=== PATIENT | male | born 1950 | race Caucasian/White ===

== ENCOUNTER 2021-02-01 09:31 | Day surgery (SDC) | payer MEDICARE, OTHER ==
--- NOTE | 2021-02-01 08:31 | HP ---
DATE OF SURGERY: 02/01/2021 HISTORY OF PRESENT ILLNESS: The patient is a 70-year-old lesion on the right face, left groin nonhealing lesion. He is in need of excision and biopsy of these. PAST MEDICAL HISTORY: Hyperlipidemia, hypertension, sleep apnea. PAST SURGICAL HISTORY: Vasectomy. Fractured elbow. Colonoscopy. He had some leukocytosis in the past. MEDICATIONS: Simvastatin, amlodipine, losartan, hydrochlorothiazide, Flomax, cetirizine, ibuprofen, vitamin D. ALLERGIES: NKDA. FAMILY HISTORY: Negative in regards to this problem. SOCIAL HISTORY: No smoking. Denies alcohol abuse. REVIEW OF SYSTEMS: Fourteen systems reviewed. No chest pain or palpitations. Other systems negative or noncontributory as above and per preadmission questionnaire. PHYSICAL EXAMINATION: GENERAL: No acute distress. HEENT: Sclerae nonicteric. Right face lesion of indeterminate behavior. NECK: No JVD. CHEST: Equal excursion, nonlabored breathing. CVS: Regular rate and rhythm. ABDOMEN: Soft. No peritoneal signs. Left groin nonhealing lesion. EXTREMITIES: No significant edema. NEURO: Alert, oriented, moving extremities symmetrically. PSYCH: Appropriate mood and affect. IMPRESSION: Left groin nonhealing lesion in need of excision. Right face lesion of indeterminate behavior and enlarging. He is in need of excision of both of these. On the face he will possibly need skin graft. Otherwise risks of aches, pains, burning, numbness, scar formation as well as motor nerve irritation, scar formation, chewing dysfunction, eyelid dysfunction or drooped lip. General risk of anesthesia, deep vein thrombosis, pulmonary embolism, pneumonia but not limited to, consent obtained. Will proceed with excision and biopsy right face lesion of indeterminate behavior, possible skin graft as well as excision and biopsy of nonhealing lesion left groin as an outpatient.
[~2021-02-01 09:31] MED LIST: Lactated Ringers 1,000 ML IV ONE; Sensorcaine 0.25% 10 ML ONE
[2021-02-01] MEDS ORDERED: Triple Antibiotic Ointment ONE (09:34)
[2021-02-01] MEDS ORDERED: Lactated Ringers 1,000 ML IV SCH (10:30)
[2021-02-01] MEDS ORDERED: SUBLIMAZE 100 MCG/2 ML ONE (11:44)
[2021-02-01] MEDS ORDERED: TORAdol 30 mg Injection ONE ×2 (11:44→13:08)
[2021-02-01] MEDS ORDERED: Zofran 4 MG/2 ML VIAL ONE (11:44)
[2021-02-01] MEDS ORDERED: BRIDION 200MG/2ML IV ONE (11:44)
[2021-02-01] MEDS ORDERED: Decadron 4 MG INJ ONE (11:44)
[2021-02-01] MEDS ORDERED: DIPRIVAN 200 MG/20 ML IV ONE (11:44)
[2021-02-01] MEDS ORDERED: Zemuron 100 MG/10 ML ONE (11:44)
[2021-02-01] MEDS ORDERED: Xylocaine-Mpf 2% 5 Ml Vial ONE (11:44)
[2021-02-01] MEDS ORDERED: KEFZOL 1 GM ONE (12:45)
[2021-02-01 13:50] VITALS: O2SAT 95
[2021-02-01 14:17] VITALS: BP 169/94; PULSE 86
--- NOTE | 2021-02-02 08:09 | OP ---
SURGERY DATE/TIME: 02/01/2021 1201 PREOPERATIVE DIAGNOSES: 1) Nonhealing, enlarging lesion of indeterminate behavior right face near eye. 2) Enlarging, symptomatic lesion of indeterminate behavior left groin. POSTOPERATIVE DIAGNOSES: 1) Nonhealing, enlarging lesion of indeterminate behavior right face near eye. 2) Enlarging, symptomatic lesion of indeterminate behavior left groin. PROCEDURE: 1) Excisional biopsy of right face lesion of indeterminate behavior with local advancement flap closure (6 mm with margins). 2) Excisional biopsy of left groin lesion of indeterminate behavior approximately 1.1 cm with intermediate closure. SURGEON: Dr. Axel Bryant. BAND SAW FILER: Jackie Gar, Medical Student III. ANESTHESIA: General. ESTIMATED BLOOD LOSS: Minimal. INDICATIONS: As noted above. Risks and benefits explained in detail and not limited to and consent obtained. DESCRIPTION OF PROCEDURE AND FINDINGS: The patient is taken to the operating room. General anesthesia induced. After prepping and draping in usual sterile fashion and after official time out and no disagreement with planned procedure, started first with marking out to normal appearing skin around this exophytic, enlarging lesion on the face between the eyes and the nose medial orbit area. Dissection carried down to normal appearing underneath tissue. Local advancement flaps were advanced back to the midline. Unfortunately there was no 6-0 Prolene available so used 5-0 Prolene in an interrupted fashion bringing the flaps back to midline. The specimen measured about 6 mm with margins and passed off for pathology. Good hemostasis noted. Attention was then turned to the groin area. Marking out to normal appearing skin around this area dissection carried deep to underlying subcutaneous tissue and passed off. It measured about 11 mm in size. Hemostasis controlled with some pinpoint cautery. Good hemostasis noted. Closed in interrupted fashion with interrupted 5-0 Vicryl closing the subcu and deep dermis in interrupted fashion, some Dermabond was placed over the top followed by a pressure dressing. The patient tolerated the procedure well. There were no immediate complications. There was no family available to discuss findings with immediately after the procedure when I went out there. If they return I will answer questions. Otherwise I will see him back in the office next week.
== END 2021-02-01 14:15 | disposition home or self-care (01) ==
LOC: SDC 09:31
PROVIDERS: ATTEND Surgery
DX: D04.5 Carcinoma in situ of skin of trunk (principal); L82.1 Other seborrheic keratosis
CPT/HCPCS: 88305; 88341; 88342; J0690; J1100; J1885; J2405; J2704; J3010; A9270-GY

== ENCOUNTER 2021-03-15 12:51 | Day surgery (SDC) | payer MEDICARE, OTHER ==
--- NOTE | 2021-03-15 10:17 | HP ---
DATE OF SURGERY: 03/15/2021 HISTORY OF PRESENT ILLNESS: The patient is a 70-year-old who had some lesions excised in the past in the left groin area. 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 PAST MEDICAL HISTORY: Hypertension, hyperlipidemia. PAST SURGICAL HISTORY: Excision of right face lesion and left groin lesion in the past. Vasectomy. Fractured elbow. Colonoscopy in the past. MEDICATIONS: Simvastatin, amlodipine, losartan-hydrochlorothiazide, Flomax, cetirizine, ibuprofen, vitamin D. ALLERGIES: NKDA. FAMILY HISTORY: Negative in regards to this problem. SOCIAL HISTORY: Denied smoking or alcohol abuse. REVIEW OF SYSTEMS: Fourteen systems reviewed. No chest pain or palpitations. Other systems negative or noncontributory as above and per preadmission questionnaire. PHYSICAL EXAMINATION: GENERAL: No acute distress. HEENT: Sclerae nonicteric. NECK: No JVD. CHEST: Equal excursion, nonlabored breathing. CVS: Regular rate and rhythm. ABDOMEN: Soft. No peritoneal signs. Left groin site excision site looks okay. EXTREMITIES: No cyanosis. NEURO: Alert, oriented, moving extremities symmetrically. PSYCH: Appropriate mood and affect. IMPRESSION: Squamous cell carcinoma in situ. He is in need of wide excision of this site. General risk of bleeding or infection, risk of wound dehiscence possibly requiring packing, risk of involved margins possibly requiring wider excision or other treatment, general risk of anesthesia, deep vein thrombosis, pulmonary embolism, pneumonia but not limited to, consent obtained. Will proceed with wide excision left groin squamous cell carcinoma in situ biopsy site as an outpatient.
[~2021-03-15 12:51] MED LIST changes: -Lactated Ringers 1,000 ML IV ONE
[2021-03-15] MEDS ORDERED: Lactated Ringers 1,000 ML IV ONE (13:11)
[2021-03-15] MEDS ORDERED: Lactated Ringers 1,000 ML IV SCH (13:30)
[2021-03-15] MEDS ORDERED: Versed 2 MG/2 ML Injection ONE (13:49)
[2021-03-15] MEDS ORDERED: Xylocaine-Mpf 2% 5 Ml Vial ONE (13:49)
[2021-03-15] MEDS ORDERED: SUBLIMAZE 100 MCG/2 ML ONE (13:49)
[2021-03-15] MEDS ORDERED: Decadron 4 MG INJ ONE (13:49)
[2021-03-15] MEDS ORDERED: DIPRIVAN 200 MG/20 ML IV ONE (13:49)
[2021-03-15] MEDS ORDERED: Zofran 4 MG/2 ML VIAL ONE (13:49)
[2021-03-15] MEDS ORDERED: TORAdol 30 mg Injection ONE (14:53)
[2021-03-15] MEDS ORDERED: Ephedrine Sulfate 50 MG/ML ONE (14:57)
[2021-03-15] MEDS ORDERED: KEFZOL 1 GM ONE (15:39)
[2021-03-15 16:44] VITALS: BP 103/48; PULSE 77; O2SAT 97
--- NOTE | 2021-03-16 09:22 | OP ---
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 PROCEDURE: Wide excision squamous cell carcinoma in situ biopsy site left groin (approximately 3 cm with margins). SURGEON: Dr. Axel Bryant. ANESTHESIA: General. ESTIMATED BLOOD LOSS: Minimal. INDICATIONS: As noted above. Risks and benefits explained in detail and not limited to and consent obtained. Site confirmed in preoperative holding area. DESCRIPTION OF PROCEDURE AND FINDINGS: Taken to the operating room. Under bright lights can definitely tell where the biopsy site was much better. In dorsal lithotomy position after general anesthesia was induced, prepped and draped in usual sterile fashion. After official time out and no disagreement with planned procedure, marking out to normal appearing skin on either side of this went from 0.5 cm to 1 cm on either side. Dissection carried down to normal subcutaneous tissue beneath. We had about 1 cm on each side of this biopsy site. As the previous biopsy site was longer and wide, it did result in 3 cm margin. Specimen was about 4 to 4.5 cm long spindled shaped excision pattern. Dissection carried down to normal subcutaneous tissue and passed off. Good hemostasis noted. The wound is closed with interrupted 3-0 Vicryl intermediate fashion in the deep superficial subcu. The skin closed with 4-0 Vicryl, Dermabond placed on the skin in a couple areas. Sterile dressing applied. The patient tolerated the procedure well. There were no immediate complications. There was no family to discuss the findings with at this time. I will see him back in the office next week to go over the biopsy results.
== END 2021-03-15 16:50 | disposition home or self-care (01) ==
LOC: SDC 12:51
PROVIDERS: ATTEND Surgery
DX: D04.5 Carcinoma in situ of skin of trunk (principal); Z79.899 Other long term (current) drug therapy
CPT/HCPCS: J0690; J1100; J1885; J2250; J2405; J2704; J3010

== ENCOUNTER 2022-06-13 11:02 | Day surgery (SDC) | payer MEDICARE, OTHER ==
--- NOTE | 2022-05-31 14:50 | HP ---
DATE OF SURGERY: 06/13/2022 HISTORY OF PRESENT ILLNESS: The patient is a 71-year-old gentleman with no bloody stools. No change bowel movement. No new abdominal pain. Family negative for colon cancer. He is in need of screening colonoscopy. He also had some reflux and is in need of upper endoscopy as well. He had some chest aches that have improved. PAST MEDICAL HISTORY: Obesity. Sleep apnea. Psychosis. Hyperlipidemia. Iron deficiency in the past. PAST SURGICAL HISTORY: No recent endoscopy. Last colonoscopy more than ten years ago. MEDICATIONS: Ergocalciferol, losartan, tamsulosin. ALLERGIES: NKDA. FAMILY HISTORY: Negative for colon cancer. SOCIAL HISTORY: No smoking. REVIEW OF SYSTEMS: Fourteen systems reviewed. No chest pain or palpitations. Other systems negative or noncontributory as above and per preadmission questionnaire. PHYSICAL EXAMINATION: Weight 243, height 5'6". BMI 39. GENERAL: No acute distress. HEENT: Sclerae nonicteric. NECK: No JVD. CHEST: Equal excursion, nonlabored breathing. CVS: Regular rate and rhythm. ABDOMEN: Soft. No peritoneal signs. EXTREMITIES: No significant edema. NEURO: Alert, oriented, moving extremities symmetrically. RECTAL: Deferred timed to endoscopy exam. PSYCH: Appropriate mood and affect. SKIN: Dry. IMPRESSION: Increased reflux, needs upper endoscopy to evaluate for gastritis, esophagitis or peptic ulcer disease. He also is in need of screening colonoscopy as he had polyps in the past. Last colonoscopy more than ten years ago. He was shown the risk sheet, explained the procedure in detail including but not limited to risk of bleeding or infection, risk of bowel injury or perforation, risk of missed or nondiagnosis or incomplete exam possibly requiring barium enema, barium swallow, other studies or procedures, general risk of anesthesia or sedation, risk of bowel prep but not limited to, possibility of inability to diagnose the etiology of his symptoms possibly requiring other studies or referrals. He understands and agrees to the planned procedure, will proceed with EGD and colonoscopy as an outpatient under MAC anesthesia.
--- NOTE | 2022-06-13 09:12 | HP ---
DATE OF SURGERY: 06/13/2022 HISTORY OF PRESENT ILLNESS: The patient is a 71-year-old gentleman with no bloody stools. No change in bowel movements. No new abdominal pain. Family history negative for colon cancer. He is in need of screening colonoscopy. He recently had some reflux. He has had some chest aches that has actually improved a little bit. He is in need of upper endoscopy to evaluate for esophagitis, peptic ulcer disease, gastritis or other etiology. PAST MEDICAL HISTORY: Hypertension. PAST SURGICAL HISTORY: Denies abdominal surgery. MEDICATIONS: None on a regular basis. ALLERGIES: NKDA. FAMILY HISTORY: Negative for colon cancer. SOCIAL HISTORY: No smoking. REVIEW OF SYSTEMS: Fourteen systems reviewed. No chest pain or palpitations. Other systems negative or noncontributory as above and per preadmission questionnaire. PHYSICAL EXAMINATION: GENERAL: No acute distress. HEENT: Sclerae nonicteric. NECK: No JVD. CHEST: Equal excursion, nonlabored breathing. CVS: Regular rate and rhythm. ABDOMEN: Soft. No peritoneal signs. EXTREMITIES: No significant edema. NEURO: Alert, oriented, moving extremities symmetrically. RECTAL: Deferred timed to endoscopy exam. PSYCH: Appropriate mood and affect. SKIN: Dry. IMPRESSION: Need for screening colonoscopy. He had some polyps, last colonoscopy greater than ten year ago. He also has had increased reflux in need of upper endoscopy to evaluate for gastritis, peptic ulcer disease, esophagitis or other etiology. He was shown the risk sheet explained the procedure in detail but not limited to bleeding or infection, risk of bowel injury or perforation, risk of missed or nondiagnosis or incomplete exam possibly requiring barium enema, barium swallow, other studies or procedures, general risk of anesthesia or sedation, risk of bowel prep but not limited to, consent obtained. Will proceed with EGD and colonoscopy as an outpatient.
[2022-06-13] MEDS ORDERED: Lactated Ringers 1,000 ML IV SCH (11:30)
[2022-06-13] MEDS ORDERED: Lactated Ringers 1,000 ML IV ONE (11:36)
[2022-06-13] MEDS ORDERED: Versed 2 MG/2 ML Injection ONE (12:31)
[2022-06-13] MEDS ORDERED: DIPRIVAN 200 MG/20 ML IV ONE ×2 (12:31→12:46)
[2022-06-13 13:55] VITALS: BP 134/97; PULSE 93; O2SAT 99
--- NOTE | 2022-06-13 14:27 | OP ---
SURGERY DATE/TIME: 06/13/2022 1232 PREOPERATIVE DIAGNOSES: 1) History of increased reflux, need for upper endoscopy. 2) History of polyps in the past, need follow up screening colonoscopy. POSTOPERATIVE DIAGNOSES: 1) Mild gastritis. 2) Mild inflammation proximal stomach and gastroesophageal junction. 3) Mild erythema distal esophagus. 4) Colon polyp. 5) Diverticulosis. 6) Fair bowel prep. 7) ASA Class III. 8) Withdrawal time of colonoscopy approximately ten minutes. PROCEDURES: 1) EGD with cold biopsy of antrum for Helicobacter pylori. 2) Cold biopsy small, little raised inflammation proximal stomach side of the gastroesophageal junction. 3) Cold biopsy of distal esophagus to evaluate for mild esophageal erythema. 4) Colonoscopy to cecum. 5) Hot biopsy polypectomy transverse colon polyp removed in piecemeal. 6) Hot biopsy polypectomy descending colon polyp. 7) Hot biopsy polypectomy rectal polyp resected x3. 8) Cold biopsy of mucosal questionable submucosal lipoma ascending colon. SURGEON: Dr. Axel Bryant. ANESTHESIA: MAC. ESTIMATED BLOOD LOSS: Minimal. INDICATIONS: As noted above. Risks and benefits explained in detail and not limited to and consent obtained. DESCRIPTION OF PROCEDURE AND FINDINGS: The patient is taken to the operating room. MAC anesthesia introduced. After official time out and no disagreement with planned procedure, bite block is positioned. Video gastroscope easily passed down the esophagus to the patent pylorus to the third and fourth portion of the duodenum. Duodenum grossly unremarkable. The scope is carefully withdrawn. Back in the stomach she did have some mild gastric erythema and some mild early gastritis or chronic gastritis. No evidence of any ulcers. Cold biopsy taken to evaluate for Helicobacter pylori. Good hemostasis noted. On retroflex there is just a little, small inflammation near the gastroesophageal junction on the gastric side this was biopsied. It did not appear to be a mass but just more of an inflammation raised area. Cold biopsy taken. Good hemostasis noted. Otherwise the gastroesophageal junction there was a little bit of erythema in the esophagus but no erosions, no gross Beasley's. Cold biopsy taken to evaluate for early esophagitis versus normal variation. The remainder of the esophagus no signs of any obvious masses, no signs of any erosions or any mucosal lesions. The scope is withdrawn. Attention is then turned to colonoscopy. Digital rectal exam did not reveal any rectal masses. Video colonoscope inserted and passed up the tortuous sigmoid, descending, transverse, ascending colon around to the cecum. Appendiceal orifice and valve photo documented. He has a little bit tortuous colon but prep overall was fair with a little bit of liquidy, semisolid stool throughout the colon that was suctioned and irrigated as clear as possible. The scope is slowly and carefully withdrawn. In the ascending colon, there appeared to be question of submucosal lipoma. Cold biopsy taken. Normal mucosal overlying. Good hemostasis noted. Scope pulled back to transverse colon and descending colon and some small polyps removed with hot biopsy polypectomy one of which removed in piecemeal fashion. Otherwise, he had some diverticulosis in the left colon. Scope pulled back to the rectum. A few small, early polyps or hyperplastic lesions removed with hot biopsy polypectomy. Good hemostasis noted. The patient tolerated the procedure well. There were no immediate complications. Findings discussed with his family or friend over the phone. I will see him back in the office next week.
== END 2022-06-13 14:03 | disposition home or self-care (01) ==
LOC: SDC 11:02
PROVIDERS: ATTEND Surgery
DX: Z09 Encounter for follow-up examination after completed treatment for conditions other than malignant neoplasm (principal); Z86.010 Personal history of colon polyps; K21.9 Gastro-esophageal reflux disease without esophagitis; K29.70 Gastritis, unspecified, without bleeding; K22.89 Other specified disease of esophagus; K57.30 Diverticulosis of large intestine without perforation or abscess without bleeding; D12.4 Benign neoplasm of descending colon
CPT/HCPCS: J2250; J2704

== ENCOUNTER 2022-12-07 14:25 | Day surgery (SDC) | payer MEDICARE, OTHER ==
[2022-12-07] MEDS ORDERED: LIDOCAINE HCL 1% 50 MG/5 ML VL PF IJ ONE (14:26)
[2022-12-07] MEDS ORDERED: Sodium Chloride 0.9(Preservative Free) 10 ML IJ ONE (14:26)
[2022-12-07] MEDS ORDERED: Depo-Medrol 40 MG/ML IM ONE (14:26)
[2022-12-07] MEDS ORDERED: DIPRIVAN 200 MG/20 ML IV ONE (16:34)
[2022-12-07] MEDS ORDERED: Lactated Ringers 1,000 ML IV ONE (18:16)
--- NOTE | 2022-12-07 22:47 | XRAY ---
Indication: Lumbar YUNIER. Intraoperative fluoroscopy provided for 18 seconds. 3 digital spot images submitted for interpretation demonstrates posterior needle tip projecting just posterior to lumbosacral junction interspace. Small amount of contrast injected for needle tip placement. Correlate with intraoperative findings/report.
--- NOTE | 2022-12-08 09:07 | XRAY ---
18 seconds of fluoroscopy was used in surgery for a lumbar YUNIER.
== END 2022-12-07 17:07 | disposition home or self-care (01) ==
LOC: SDC-PAIN 14:25
PROVIDERS: ATTEND Psychiatry & Neurology Pain Medicine
DX: M54.16 Radiculopathy, lumbar region (principal); Z79.899 Other long term (current) drug therapy
CPT/HCPCS: 62323; 72100; 77003; J1030; J2001; J2704; Q9966

== ENCOUNTER 2023-01-16 10:09 | Emergency (ER) | payer MEDICARE, OTHER ==
[2023-01-16 10:34] VITALS: RESP 18; TEMP 97; O2SAT 98
--- NOTE | 2023-01-16 10:39 | ERPHSYRPT ---
- History of Present Illness Time Seen by Provider: 01/16/23 10:26 Source: patient, other (girlfriend) Exam Limitations: no limitations Patient Subjective Stated Complaint: pt here for left lower leg pain for 2 weeks now. Triage Nursing Assessment: pt walked in, resp easy, skin w/d/p. left lower leg and foot pale, cold to touch, no swelling or redness. co feeling numb Physician History: Pt states he has had pain in his lower back to his left toes with numbness and a cold feeling in his left foot for the past 2 weeks. Today he noticed his left foot was pale. Pt denies fever, chest pain, vomiting; admits to shortness of air for the past 2 weeks with exertion. Allergies/Adverse Reactions: No Known Drug Allergies Allergy (Verified 01/16/23 10:21) Home Medications: Amlodipine Besylate 5 mg [Norvasc 5 mg] 5 mg PO DAILY 01/22/21 [History] Cetirizine HCl 10 mg PO DAILY 01/22/21 [History] Losartan Potassium [Cozaar] 100 mg PO DAILY 01/22/21 [History] PANTOPRAZOLE 40 mg Tablet [Protonix 40MG Tablet] 40 mg PO QAM 06/03/22 [History] Pravastatin Sodium 20 mg PO DAILY 06/03/22 [History] hydroCHLOROthiazide [Hydrochlorothiazide] 20 mg PO DAILY 06/03/22 [History] Hx Influenza Vaccination/Date Given: No Hx Pneumococcal Vaccination/Date Given: Yes Immunizations Up to Date: Yes Travel Risk - International Travel Have you traveled outside of the country in past 3 weeks: No - Coronavirus Screening Are you exhibiting any of the following symptoms?: No Close contact with a COVID-19 positive Pt in past 14-21 Days: No - Vaccine Status Have you recieved a Covid-19 vaccination: Yes Ski [employer]: Moderna - Vaccination Dates Date of 2cond Vaccination (if applicable): 2020 - Review of Systems Constitutional: No Fever, No Chills Ears, Nose, & Throat: No Ear Pain, No Throat Pain Respiratory: Dyspnea on Exertion (BENAVIDEZ) Cardiac: No Chest Pain Abdominal/Gastrointestinal: No Abdominal Pain, No Nausea, No Vomiting Musculoskeletal: Other (left foot is pale today) - Past Medical History Pertinent Past Medical History: Yes Neurological History: No Pertinent History ENT History: No Pertinent History Cardiac History: High Cholesterol, Hypertension Respiratory History: No Pertinent History Endocrine Medical History: No Pertinent History Musculoskeletal History: No Pertinent History GI Medical History: No Pertinent History History: No Pertinent History Psycho-Social History: No Pertinent History Male Reproductive Disorders: No Pertinent History Other Medical History: has too much blood has to have it drawn off every so often. had it done on 01/20/2021. - Past Surgical History Past Surgical History: Yes Neuro Surgical History: No Pertinent History Cardiac: No Pertinent History Respiratory: No Pertinent History Gastrointestinal: No Pertinent History Genitourinary: No Pertinent History Musculoskeletal: Other Male Surgical History: No Pertinent History Other Surgical History: arm put back together after he broke it. skin cancer removed a few weeks ago - Social History Smoking Status: Never smoker Exposure to second hand smoke: No Drug Use: none Patient Lives Alone: No - Nursing Vital Signs Nursing Vital Signs: Initial Vital Signs Temperature 97.0 F 01/16/23 10:34 Pulse Rate 99 H 01/16/23 10:34 Respiratory Rate 18 01/16/23 10:34 Blood Pressure 118/100 01/16/23 10:34 O2 Sat by Pulse Oximetry 98 01/16/23 10:34 Pain Scale Pain Intensity 7 - Physical Exam General Appearance: alert Eyes, Ears, Nose, Throat Exam: moist mucous membranes Neck Exam: normal inspection Cardiovascular/Respiratory Exam: normal breath sounds, heart sounds normal Gastrointestinal/Abdominal Exam: soft (B.S. normal) Hips Exam: bilateral: normal range of motion Legs Exam: bilateral leg: normal range of motion Knees Exam: left knee: other (No left popliteal pulse), bilateral knee: normal range of motion Ankle Exam: left ankle: other, bilateral ankle: normal range of motion Foot Exam: right foot: other (left foot pale, cold & without pulses; good left femoral pulse.), bilateral foot: normal range of motion Neuro/Tendon Exam: sensory deficit (decreased sensation of left foot) Mental Status Exam: alert, oriented x 3, cooperative Skin Exam: pale (left foot) SpO2 Interpretation: normal SpO2: 98 O2 Delivery: Room Air - Course Nursing assessment & vital signs reviewed: Yes - CT Exams Left Lower Extremity CT Interpretation: Discussed w/radiologist (Occlusion mid to distal superficial femoral, popliteal, tibial peroneal trunk and posterior tibial arteries. Faint reconstitution peroneal and anterior tibial arteries but no runoff into the left foot.) Ordered Tests: Active Orders 24 hr Category Date Time Status IV Insertion-2nd Peripheral STAT Care 01/16/23 11:48 Active CTA LOWER EXTREMITY W CONTRAST [CT] Stat Exams 01/16/23 10:50 Completed CBC W DIFF Stat Lab 01/16/23 10:31 Completed CMP Stat Lab 01/16/23 10:31 Completed PROTIME WITH INR Stat Lab 01/16/23 10:31 Completed Medication Summary Discontinued Medications Generic Name Dose Route Start Last Admin Trade Name Freq PRN Reason Stop Dose Admin Sodium Chloride 1,000 mls @ 999 mls/hr 01/16/23 10:48 01/16/23 11:03 Sodium Chloride 0.9% 1000 Ml IV 01/16/23 11:48 999 mls/hr .Q1H1M STA Administration Sodium Chloride Confirm 01/16/23 11:00 Sodium Chloride 0.9% 1000 Ml Administered 01/16/23 11:01 Dose 1,000 mls @ ud .ROUTE .STK-MED ONE Morphine Sulfate 2 mg 01/16/23 10:51 01/16/23 11:04 Morphine Sulfate 2 Mg/Ml Inj IV 01/16/23 10:52 2 mg STAT ONE Administration Morphine Sulfate Confirm 01/16/23 11:00 Morphine Sulfate 2 Mg/Ml Inj Administered 01/16/23 11:01 Dose 2 mg .ROUTE .STK-MED ONE Lab/Rad Data: Laboratory Result Diagrams 01/16/23 10:31 01/16/23 10:31 Laboratory Results 01/16/23 01/16/23 01/16/23 Range/Units 10:31 10:31 10:31 WBC 15.3 H (4.0-10.5) x10^3/uL RBC 6.48 H (4.1-5.6) x10^6/uL Hgb 13.3 (12.5-18.0) g/dL Hct 45.7 (42-50) % MCV 70.5 L (78-100) fL MCH 20.5 L (26-32) pg MCHC 29.1 L (32-36) g/dL RDW 19.9 H (11.5-14.0) % Plt Count 463 H (150-450) x10^3/uL MPV 7.7 (7.5-11.0) fL Gran % 71.1 H (36.0-66.0) % Immature Gran % (Auto) 1.3 H (0.00-0.4) % Nucleat RBC Rel Count 0.0 (0.00-0.1) % Eos # (Auto) 0.15 (0-0.5) x10^3/uL Immature Gran # (Auto) 0.20 H (0.00-0.03) x10^3u/L Absolute Lymphs (auto) 2.59 (1.0-4.6) x10^3/uL Absolute Monos (auto) 1.36 H (0.0-1.3) x10^3/uL Absolute Nucleated RBC 0.00 (0.00-0.01) x10^3u/L Lymphocytes % 17.0 L (24.0-44.0) % Monocytes % 8.9 (0.0-12.0) % Eosinophils % 1.0 (0.00-5.0) % Basophils % 0.7 (0.0-0.4) % Absolute Granulocytes 10.85 H (1.4-6.9) x10^3/uL Basophils # 0.10 (0-0.4) x10^3/uL PT 10.1 (9.4-12.5) SECONDS INR 0.92 (0.8-3.0) Sodium 143 (137-145) mmol/L Potassium 3.8 (3.5-5.1) mmol/L Chloride 108 H (98-107) mmol/L Carbon Dioxide 22 (22-30) mmol/L Anion Gap 16.3 H (5-15) MEQ/L BUN 22 H (9-20) mg/dL Creatinine 0.86 (0.66-1.25) mg/dL Estimated GFR > 60.0 ML/MIN Glucose 99 (74-106) mg/dL Calcium 9.1 (8.4-10.2) mg/dL Total Bilirubin 0.40 (0.2-1.3) mg/dL AST 29 (17-59) U/L ALT 37 (0-50) U/L Alkaline Phosphatase 110 (38-126) U/L Serum Total Protein 7.9 (6.3-8.2) g/dL Albumin 4.3 (3.5-5.0) g/dL - Progress Progress: unchanged Discussed with Dr.: Other (Spoke with Dr. Rema Pressley([id number]) who requested a CTA of the left lower extremity be done at [facility] prior to transfer to [facility]. Spoke with Dr. 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
[2023-01-16 10:47] VITALS: PULSE 102
[2023-01-16] MEDS ORDERED: Sodium Chloride 0.9% 1000 ML 1,000 ML IV STA (10:48)
[2023-01-16] MEDS ORDERED: MORPHINE SULFATE 2 MG INJ IV ONE (10:51)
[2023-01-16 10:54] LABS: Absolute Neutrophil Ct (ANC) 10.85 x10^3/uL (1.4-6.9); BASOPHIL % 0.7 % (0.0-0.4); Eosinophil (Absolute #) 0.15 x10^3/uL (0-0.5); Hematocrit 45.7 % (42-50); Hemoglobin 13.3 g/dL (12.5-18.0); IMMATURE GRAN % 1.3 % (0.00-0.4); Lymphocyte (Absolute #) 2.59 x10^3/uL (1.0-4.6); Mean Cell Volume 70.5 fL (78-100); Mean Corpuscular Hemoglobin 20.5 pg (26-32); Mean Corpuscular Hgb Concent. 29.1 g/dL (32-36); Mean Platelet Volume 7.7 fL (7.5-11.0); Monocyte (Absolute #) 1.36 x10^3/uL (0.0-1.3); Monocytes % 8.9 % (0.0-12.0); Neutrophil % 71.1 % (36.0-66.0); Platelet Count 463 x10^3/uL (150-450); Red Blood Count 6.48 x10^6/uL (4.1-5.6); Red Cell Distribution Width 19.9 % (11.5-14.0); White Blood Count 15.3 x10^3/uL (4.0-10.5)
[2023-01-16] MEDS ORDERED: MORPHINE SULFATE 2 MG INJ ONE (11:00)
[2023-01-16] MEDS ORDERED: Sodium Chloride 0.9% 1000 ML 1,000 ML ONE (11:00)
[2023-01-16 11:07] LABS: ALBUMIN 4.3 g/dL (3.5-5.0); ALKALINE PHOSPHATASE 110 U/L (38-126); ANION GAP 16.3 MEQ/L (5-15); BLOOD UREA NITROGEN 22 mg/dL (9-20); CHLORIDE 108 mmol/L (98-107); Calcium 9.1 mg/dL (8.4-10.2); Carbon Dioxide 22 mmol/L (22-30); Creatinine 1 0.86 mg/dL (0.66-1.25); EST GLOMERULAR FILTRATION RATE > 60.0 ML/MIN; Glucose 99 mg/dL (74-106); INR 0.92 (0.8-3.0); PROTIME 10.1 SECONDS (9.4-12.5); Potassium 3.8 mmol/L (3.5-5.1); SGOT/AST 29 U/L (17-59); SGPT/ALT 37 U/L (0-50); SODIUM 143 mmol/L (137-145); Total Protein 7.9 g/dL (6.3-8.2)
[2023-01-16 11:14] VITALS: BP 129/98
--- NOTE | 2023-01-16 12:00 | XRAY ---
Indication: Pain. Pale. No pulse. Limited CTA left lower extremity performed using 125 cc Isovue 370 contrast. 2-D sagittal and coronal reformatted images obtained. Additional 3-D reformatted images obtained using a separate workstation. Comparison: None Visualized mid to distal aorta is minimally arteriosclerotic with widely patent branching left and right main renal arteries. Distal aorta demonstrates small focus of saccular aneurysm up to 1.5 cm diameter. Visualized iliac vessels demonstrates minimal arteriosclerotic calcifications in both common iliac arteries without critical stenosis/obstruction. Remaining visualized left external iliac artery is widely patent. Minimal arteriosclerotic disease in the distal common femoral artery. Deep femoral artery and mid to proximal superficial femoral artery demonstrates normal CTA appearance. There is occlusion of the remaining mid to distal superficial femoral artery, popliteal artery, tibial peroneal trunk, and posterior tibial artery. Faint reconstitution of peroneal and anterior tibial arteries. No obvious trifurcation vessels crossing the ankle joint to supply the left foot. Visualized noncontrasted soft tissues demonstrates scattered colonic diverticulosis. No acute fracture, dislocation, or suspicious bony lesions. Impression: 1. 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 2. Minimal arteriosclerotic disease involving pelvic vessels without critical stenosis/obstruction. 3. Occlusion mid to distal superficial femoral, popliteal, tibial peroneal trunk, and posterior tibial arteries. Faint reconstitution peroneal and anterior tibial arteries but no runoff into the left foot. Comment: Telephone report was given Dr. Ulrich in the ER at 1155 hrs. on January 16, 2023.
[2023-01-16] MEDS ORDERED: Heparin 25,000 units/D5W: USE ORDER SET PROTO 25,000 UNITS/250 ML BAG IV ONE (12:08)
[2023-01-16] MEDS ORDERED: HEPARIN 5000 UNITS/0.5 ML (HIGH RISK MED) ONE (12:08)
[2023-01-16] MEDS ORDERED: HEPARIN 5000 UNITS/0.5 ML (HIGH RISK MED) IV ONE (12:11)
[2023-01-16] MEDS ORDERED: Heparin 25,000 units/D5W: USE ORDER SET PROTO 25,000 UNITS/250 ML BAG IV SCH (12:30)
== END 2023-01-16 12:36 | disposition short-term general hospital (02) ==
LOC: ED 10:09
DX: I70.202 Unspecified atherosclerosis of native arteries of extremities, left leg (principal); M54.50 Low back pain, unspecified; R20.2 Paresthesia of skin; R06.02 Shortness of breath; E78.5 Hyperlipidemia, unspecified; I10 Essential (primary) hypertension; Z79.899 Other long term (current) drug therapy
CPT/HCPCS: 36000; 36415; 73706; 80053; 85025; 85610; 85730; 93041; 96374; 96375; 99285; 99291; J1644; J2270

== ENCOUNTER 2023-06-12 08:09 | Day surgery (SDC) | payer MEDICARE, OTHER ==
[2023-06-12] MEDS: Lactated Ringers 1,000 ML IV SCH (08:40)
--- NOTE | 2023-06-12 09:09 | HP ---
DATE OF SURGERY: 06/12/2023 HISTORY OF PRESENT ILLNESS: The patient is a 72-year-old on iron pills. No bright bloody stools. He had a blood clot and leg vessel cleaned out a few months ago. Family history negative for colon cancer. It is felt he is in need of EGD and colonoscopy. PAST MEDICAL HISTORY: As mentioned above. Hypertension, erythrocytosis and anemia. PAST SURGICAL HISTORY: Elbow surgery. Colonoscopy. Vasectomy. Leg clot cleaned out in the past. MEDICATIONS: Per admission assessment. His medications include metoprolol, Xarelto, Pravastatin for hyperlipidemia, amlodipine for hypertension, hydrochlorothiazide. ALLERGIES: NKDA. FAMILY HISTORY: Initially he told he did not have family history of colon cancer, whether his mother does or not is unclear. SOCIAL HISTORY: No smoking or alcohol abuse. REVIEW OF SYSTEMS: Twelve systems reviewed. No chest pain or palpitations. Other systems negative or noncontributory as above and per preadmission questionnaire. PHYSICAL EXAMINATION: Height 5 feet 6 inches. BMI 39.32. GENERAL: No acute distress. HEENT: Sclerae nonicteric. EOMI. Oral mucous membranes moist. NECK: No JVD. CHEST: Equal excursion, nonlabored breathing. CVS: Regular rate and rhythm. ABDOMEN: Soft. No peritoneal signs. EXTREMITIES: No significant edema. NEURO: Alert, oriented, moving extremities symmetrically. RECTAL: Deferred timed to endoscopy exam. PSYCH: Appropriate mood and affect. SKIN: Dry. IMPRESSION: Anemia. I recommend EGD and colonoscopy for further evaluation. Risks explained in detail including but not limited to bleeding or infection, risk of bowel injury or perforation, risk of missed or nondiagnosis or incomplete exam possibly requiring other procedures or referrals. Risk of anesthesia or sedation, risk of bowel prep. Risk of perforation possibly requiring open procedure. Hold thinners preoperative. Continue medication for heart disease and leukocytosis. Will proceed with EGD and colonoscopy as an outpatient.
[2023-06-12] MEDS ORDERED: Xylocaine-Mpf 2% 5 Ml Vial ONE (10:26)
[2023-06-12] MEDS ORDERED: Versed 2 MG/2 ML Injection ONE (10:26)
[2023-06-12] MEDS ORDERED: DIPRIVAN 200 MG/20 ML IV ONE ×2 (10:26→10:56)
[2023-06-12 11:41] VITALS: RESP 16
[2023-06-12 11:56] VITALS: BP 145/100; PULSE 78; TEMP 97.3; O2SAT 98
--- NOTE | 2023-06-13 08:18 | OP ---
SURGERY DATE/TIME: 06/12/2023 PREOPERATIVE DIAGNOSIS: Anemia. POSTOPERATIVE DIAGNOSES: 1) Moderate gastritis without gross ulceration. 2) Short segment distal esophageal erythema without evidence of any gross mass or erosion. 3) ASA Class III. 4) Diverticulosis of colon. 5) Small early polyps versus hyperplastic colon ascending colon, transverse colon. 6) Fair bowel prep. 7) Withdrawal time at least nine minutes on colonoscopy. PROCEDURES: 1) EGD with cold biopsy of antrum. 2) Cold biopsy of gastric body. 3) Cold biopsy distal esophagus. 4) Colonoscopy to cecum. 5) Hot biopsy polypectomy small ascending colon polyp versus hyperplastic lesion 6) Hot biopsy polypectomy transverse colon early polyp versus hyperplastic lesion removed in piecemeal fashion. SURGEON: Dr. Axel Bryant. ANESTHESIA: MAC. ESTIMATED BLOOD LOSS: Minimal. INDICATIONS: As noted above. Risks and benefits explained in detail and not limited to and consent obtained. DESCRIPTION OF PROCEDURE AND FINDINGS: The patient is taken to the operating room. MAC anesthesia introduced. After official time out and no disagreement with planned procedure, bite block positioned. Video gastroscope easily passed down the esophagus to the patent pylorus to the junction of the third and fourth portion of the duodenum. No signs of any ulcers or significant signs of anemia in the proximal small bowel. The scope pulled back in the stomach. He did have a moderate chronic gastritis. No ulcers. No masses. No evidence of any hiatal hernia on retroflex. Cold biopsy taken of gastric body and gastric antrum to evaluate for histology. Scope pulled back to the gastroesophageal junction. There was a trace of erythema distal esophagus whether this is normal variation of his gastroesophageal junction or whether there is some early inflammation cold biopsy taken. Good hemostasis noted. No signs of any obvious masses or other mucosal lesion on withdrawal of the scope. Gastroesophageal junction was about 40 cm. The scope is withdrawn. Attention is then turned to colonoscopy. Digital rectal exam did not reveal any rectal masses. Video colonoscope inserted and passed up through the slightly tortuous sigmoid, descending, transverse, ascending colon requiring two different staff members applying external pressure and positioning on his back the scope was able to be passed to the cecum. Appendiceal orifice and valve area were photo documented. Prep overall was fair with liquidy, semisolid stool just slightly limiting the exam for small lesions. The scope is slowly and carefully withdrawn. There were no signs of any large polyps, masses or obstructing lesions. Withdrawing the scope over the next nine minutes suction and irrigating the stool. He did have small early polyp versus hyperplastic lesion in the ascending colon removed with hot biopsy polypectomy. Early polyp versus hyperplastic lesion removed in piecemeal fashion in the transverse colon. The patient had some moderate diverticulosis in the left colon. He had some minimal unremarkable internal and external hemorrhoids. No signs of any large polyps, masses or obstructing lesions. Again, the prep did slightly limit the exam for very small lesions. Findings discussed with the family out in the waiting area. He was transferred to the recovery room in stable condition. I will see him back in the office in a week or two to go over the results.
== END 2023-06-12 12:05 | disposition home or self-care (01) ==
LOC: SDC 08:09
PROVIDERS: ATTEND Surgery
DX: K29.70 Gastritis, unspecified, without bleeding (principal); D64.9 Anemia, unspecified; K22.89 Other specified disease of esophagus; K57.30 Diverticulosis of large intestine without perforation or abscess without bleeding; D12.3 Benign neoplasm of transverse colon; Z79.899 Other long term (current) drug therapy; K64.4 Residual hemorrhoidal skin tags; K64.8 Other hemorrhoids
CPT/HCPCS: 82947; 93005; J2250; J2704